=== PATIENT | male | born 1985 | race African-American/Black ===

== ENCOUNTER 2022-04-24 11:55 | Emergency (ER) | payer BC ==
[~2022-04-24] VITALS: Ht 182.9 cm; Wt 120.2 kg
[2022-04-24 12:07] VITALS: BP_SYST 134
[2022-04-24] MEDS ORDERED: NACL 0.9% 1,000 ML IV ONE (12:30)
[2022-04-24] MEDS ORDERED: ADENOSINE 6MG/2ML VIAL IVP ONE ×2 (12:30)
[2022-04-24 12:54] LABS: BASOPHILS # (AUTO) 0.1 K/uL (0.0-0.2); BASOPHILS % (AUTO) 0.8 % (0.0-2.0); EOSINOPHILS # (AUTO) 0.1 K/uL (0.0-0.4); EOSINOPHILS % (AUTO) 1.9 % (0.0-4.0); HEMATOCRIT 46.4 % (36-54); HEMOGLOBIN 15.7 g/dL (14.0-18.0); LYMPHOCYTES # (AUTO) 2.2 K/uL (1.0-5.5); LYMPHOCYTES % (AUTO) 35.4 % (20.5-51.5); MEAN CORPUSCULAR HEMOGLOBIN 28 pg (27-31); MEAN CORPUSCULAR HGB CONC 34 % (32-36); MEAN CORPUSCULAR VOLUME 84 fL (79.0-98.0); MONOCYTES # (AUTO) 0.5 K/uL (0.0-1.0); MONOCYTES % (AUTO) 8.8 % (1.7-9.3); NEUTROPHILS # (AUTO) 3.2 K/uL (1.8-7.7); NEUTROPHILS % (AUTO) 53.1 % (40.0-70.0); PLATELET COUNT (AUTO) 256 K/uL (130-430); RED BLOOD CELL COUNT(AUTO) 5.54 MIL/uL (4.2-6.2); RED CELL DISTRIBUTION WIDTH 13.6 % (9.0-15.0); WHITE BLOOD COUNT (AUTO) 6.1 K/uL (4.8-10.8)
[2022-04-24 13:08] LABS: ANION GAP 9 (5-15); CALCIUM 9.3 mg/dL (8.4-11.0); CHLORIDE 100 mmol/L (98-107); CREATININE 1.26 mg/dL (0.55-1.30); GLUCOSE 114 mg/dL (70-99); POTASSIUM 3.7 mmol/L (3.5-5.1); SODIUM SERUM 138 mmol/L (136-145); UREA NITROGEN, BLOOD 14 mg/dL (8-21)
[2022-04-24 13:24] LABS: ALANINE AMINOTRANSFERASE 89 U/L (12-78); ALBUMIN 3.8 g/dL (3.4-4.8); ASPARTATE AMINOTRANSFERASE 60 U/L (10-37); THYROID STIMULATING HORMONE 2.22 uIu/mL (0.36-3.74); TOTAL BILIRUBIN 0.3 mg/dL (0.0-1.0)
[2022-04-24 13:27] LABS: GFR AFRICAN AMERICAN 83 mL/min (>90)
[2022-04-24 19:18] VITALS: BP_SYST 146
== END 2022-04-24 19:18 | disposition home or self-care (01) ==
LOC: SED 11:55
DX: R00.2 Palpitations (principal)
CPT/HCPCS: 99285; 96360; 71045; 80053; 83880; 84443; 85025; 84484; 36415; 93005; J0153; J7030